=== PATIENT | female | born 1940 | race Two or more races ===

== ENCOUNTER → 2019-03-24 | Outpatient (CLI) | payer MEDICARE ==
[~2019-03-24] VITALS: Ht 157.5 cm; Wt 55.3 kg
[~2019-03-24] MED LIST: ASCO250C3 PO; CHOL200021 PO; LEVO88TA4 PO
[2019-05-26 11:23] VITALS: BP 137/76
== END | disposition home or self-care (01) ==
LOC: SUR 13:15 → EDSTATUS 05-26 07:00
PROVIDERS: ATTEND Surgery
DX: Z53.9 Procedure and treatment not carried out, unspecified reason (principal)

== ENCOUNTER 2019-05-26 07:06 | Day surgery (SDC) | payer MEDICARE ==
[2019-05-24 12:47] LABS: Urine WBC None Seen /hpf (0 - 5)
[2019-05-24 13:18] LABS: Basophils # (auto) 0.1 uL; Basophils % (auto) 0.9 % (0.0-2.0); Eosinophils # (auto) 0 uL; Eosinophils % (auto) 0.7 % (0.0-7.0); Hematocrit 45.9 % (36.0-46.0); Hemoglobin 15.2 g/dL (12.2-16.2); Lymphocytes # (auto) 1.7 uL; Mean Corpuscular Hemoglobin 29.3 pg (28.0-32.0); Mean Corpuscular Volume 88.8 fL (80.0-100.0); Monocytes # (auto) 0.3 uL; Monocytes % (auto) 4.7 % (0.0-12.0); Neutrophils # (auto) 5.1 uL; Neutrophils % (auto) 70.7 % (37.0-80.0); Platelet Count (auto) 313 10^3/uL (140-450); Red Blood Cells 5.18 10^6/uL (4.0-5.20); Red Cell Distribution Width 13.5 % (11.8-14.3); White Blood Cell 7.2 10^3/uL (4.4-10.8)
[2019-05-24 13:19] LABS: INR < 0.93 (0.9-1.15); Partial Thromboplastin Time 23.6 sec (23.64-32.05)
[2019-05-24 13:30] LABS: Albumin 4.1 g/dL (3.4-5.0)
[2019-05-24 13:49] LABS: BUN/Creatinine Ratio 22.7; Bilirubin, Total 0.3 mg/dL (0.2-1.0); Calcium 9.4 mg/dL (8.5-10.1); Potassium 3.8 mmol/L (3.5-5.1); Total Protein 7.6 g/dL (6.4-8.2)
[2019-05-24 16:54] LABS: Urine Bacteria NONE SEEN /hpf (None Seen); Urine Blood Negative /uL (Negative); Urine Specific Gravity 1.006 (1.001-1.035)
[~2019-05-26] VITALS: Ht 30.5 cm; Wt 0.5 kg
[2019-05-26] MEDS ORDERED: ceFAZolin 1GM/50ML 50 ML IV ONE (07:54)
[2019-05-26] MEDS ORDERED: BUPIVACAINE 0.25% INJ 50ML VIAL ONE (09:15)
[2019-05-26] MEDS ORDERED: LIDOCAINE 1% HCL (LOCAL ANESTH.) INJ 20ML MDV ONE (09:15)
[2019-05-26] MEDS ORDERED: MIDAZOLAM HCL 1MG/1ML-2 ML VIAL ONE (09:45)
[2019-05-26] MEDS ORDERED: fentaNYL CITRATE 100 MCG/2 ML VL ONE (09:45)
[2019-05-26] MEDS ORDERED: PROPOFOL 10 MG/ML 20 ML IV ONE (09:56)
[2019-05-26] MEDS ORDERED: fentaNYL CITRATE 100 MCG/2 ML VL IV ONE (10:55)
[2019-05-26] MEDS ORDERED: hydrALAZINE HCL 20 MG/ML VL IV PRN (11:00)
[2019-05-26] MEDS ORDERED: ePHEDrine SULFATE 50 MG/ML AMP IV PRN (11:00)
[2019-05-26] MEDS ORDERED: fentaNYL CITRATE 100 MCG/2 ML VL IV PRN (11:00)
[2019-05-26] MEDS ORDERED: ONDANSETRON HCL 4 MG/2 ML VIAL IV ONE (11:00)
== END 2019-05-26 11:28 | disposition home or self-care (01) ==
LOC: EDUNIT# → SUR 07:06
PROVIDERS: ATTEND Surgery
DX: M67.432 Ganglion, left wrist (principal); E89.0 Postprocedural hypothyroidism; Z79.82 Long term (current) use of aspirin; Z79.899 Other long term (current) drug therapy; Z91.013 Allergy to seafood
CPT/HCPCS: 25111; 36415; 80053; 81001; 85025; 85610; 85730; 88302; 93005; J0690; J2001; J2250; J2704; J3010; J3490; Q4100

== ENCOUNTER → 2020-01-14 | Outpatient (CLI) | payer MEDICARE ==
[~2020-01-14] MED LIST changes: -ASCO250C3 PO; +ASCO250C8 PO
[2020-01-14 16:19] LABS: Urine Blood Negative /uL (Negative); Urine Specific Gravity 1.004 (1.001-1.035)
== END | disposition home or self-care (01) ==
LOC: LAB 11:52
PROVIDERS: ATTEND Internal Medicine Cardiovascular Disease
DX: N39.0 Urinary tract infection, site not specified (principal)
CPT/HCPCS: 81003; 87086; 87088; 87186

== ENCOUNTER → 2020-06-12 | Outpatient (CLI) | payer MEDICARE ==
[~2020-06-12] VITALS: Ht 154.9 cm; Wt 61.2 kg
== END | disposition home or self-care (01) ==
LOC: Rad HDHVI 08:29
PROVIDERS: ATTEND Internal Medicine Cardiovascular Disease
DX: E03.9 Hypothyroidism, unspecified (principal); E78.00 Pure hypercholesterolemia, unspecified
CPT/HCPCS: 78452; 93017; 96374; A9500

== ENCOUNTER → 2020-07-19 | Outpatient (CLI) | payer MEDICARE ==
[~2020-07-19] MED LIST changes: +cefTRIAXone 1GM/50ML D5W 50 ML IV ONE
[2020-07-19 10:25] VITALS: BP 128/66
--- NOTE | 2020-07-19 10:25 | NUR ---
CLINIC PT ARRIVED TO THE [facility] FROM BACK OFFICE WITH ORDERS FOR IN ANTIBIOTIC TX. A/OX4, AMBULATORY. BREATHING IS EVEN AND UNLABORED. PT IS ACCOMPANIED BY SON. PT HAS REDNESS AND EDEMA TO THE L LEG.
--- NOTE | 2020-07-19 10:28 | NUR ---
IV insertion IV access obtained, via clean sterile technique by inserting 22 gauge catheter at RAC after 1 attempt(s). IV secured properly. No trauma to site. Patient tolerated procedure well. NOTE INSERTED BY MARY CHAVEZ
--- NOTE | 2020-07-19 11:05 | NUR ---
IV removal IV DC'd with sterile technique, catheter fully intact. Pressure dressing applied to site. Patient tolerated procedure well. Discharged with aftercare instructions per MD. NOTE: REMOVED BY MARY CHAVEZ
[2020-07-19 11:10] VITALS: BP 133/60
--- NOTE | 2020-07-19 11:10 | NUR ---
Discharge Instructions See e-MAR for any mediations given with this visit. Patient education given on disease process. Patient verbalized understanding. Previous labs reviewed. Patient discharged in stable condition with after care instructions and follow up appointment IN [address] PINEDA. NOTE KRYSTLE CASTRO [id number] ADMIN BY CARITO CHAVEZ
== END | disposition home or self-care (01) ==
LOC: CHF HDHVI 10:27
PROVIDERS: ATTEND Internal Medicine Cardiovascular Disease
DX: L03.116 Cellulitis of left lower limb (principal); E03.9 Hypothyroidism, unspecified; E78.00 Pure hypercholesterolemia, unspecified
CPT/HCPCS: 96365; G0463; J0696

== ENCOUNTER → 2021-12-07 | Outpatient (CLI) | payer MEDICARE ==
[~2021-12-07] MED LIST changes: -cefTRIAXone 1GM/50ML D5W 50 ML IV ONE
[2021-12-07 14:59] LABS: Basophils # (auto) 0 10 ^3/uL (0-0.2); Basophils % (auto) 0.5 % (0.0-2.0); Eosinophils # (auto) 0 10 ^3/uL (0-0.8); Hematocrit 44.1 % (36.0-46.0); Hemoglobin 14.8 g/dL (12.2-16.2); Lymphocytes # (auto) 0.8 10 ^3/uL (0.4-5.4); Lymphocytes % (auto) 8.5 % (10.0-50.0); Mean Corpuscular Hemoglobin 29.7 pg (28.0-32.0); Mean Corpuscular Hgb Conc. 33.6 g/dL (32.0-36.0); Mean Corpuscular Volume 88.3 fL (80.0-100.0); Monocytes # (auto) 0.1 10 ^3/uL (0-1.3); Monocytes % (auto) 1.3 % (0.0-12.0); Neutrophils # (auto) 8.4 10 ^3/uL (1.6-8.6); Neutrophils % (auto) 89.7 % (37.0-80.0); Red Blood Cells 4.99 10^6/uL (4.0-5.20); Red Cell Distribution Width 13.7 % (11.8-14.3); White Blood Cell 9.4 10^3/uL (4.4-10.8)
[2021-12-07 15:10] LABS: Free T4 (Free Thyroxine) 1.38 ng/dL (0.89-1.76)
[2021-12-07 15:22] LABS: BUN/Creatinine Ratio 22.7; Bilirubin, Total 0.4 mg/dL (0.2-1.0); CRP High Sensitivity 0.03 mg/dL (< 0.3); Calcium 9.1 mg/dL (8.5-10.1); Total Protein 7.6 g/dL (6.4-8.2)
== END | disposition home or self-care (01) ==
LOC: LAB 13:25
PROVIDERS: ATTEND Internal Medicine Cardiovascular Disease
DX: D51.3 Other dietary vitamin B12 deficiency anemia (principal); E11.9 Type 2 diabetes mellitus without complications; I10 Essential (primary) hypertension; R00.2 Palpitations; E55.9 Vitamin D deficiency, unspecified; D64.9 Anemia, unspecified; R53.1 Weakness; R30.0 Dysuria
CPT/HCPCS: 36415; 80053; 80061; 82550; 82607; 83036; 83874; 84439; 84443; 85025; 85652; 86141